=== PATIENT | female | born 1955 | race Caucasian/White ===

== ENCOUNTER → 2017-02-23 | Outpatient (CLI) | payer MEDICARE ==
[2015-12-23 11:00] VITALS: BP 93/55
[~2017-02-23] MED LIST: ASPI-630 PO; CHLO1CAP PO; DULO60CA44 PO; LISI1TAB3 PO; METH20TA PO; PANT40TA5 PO; QUET200T PO
--- NOTE | 2017-02-23 11:13 | CARD ---
APPROVED REPORT EXAM: Two-dimensional and M-mode echocardiogram with Doppler and color Doppler. Other Information Quality : GoodHR: 70bpm INDICATION Pericardial Effusion 2D DIMENSIONS Left Atrium(2D)3.4 (1.6-4.0cm)IVSd1.1 (0.7-1.1cm) Aortic Root(2D)2.2 (2.0-3.7cm)LVDd4.8 (3.9-5.9cm) LVOT Diameter1.9 (1.8-2.4cm)PWd1.3 (0.7-1.1cm) LVDs3.2 (2.5-4.0cm)FS (%) 33.7 % SV67.3 mlLVEF(%)62.4 (>50%) Aortic Valve AoV Peak Dipesh.225.9cm/sAoV VTI52.3cm AO Peak GR.20.4mmHgLVOT Peak Dipesh.118.3cm/s AO Mean GR.11mmHgAVA (VMAX)1.09cm2 AI P 1/2 Opbg993bf Mitral Valve MV E Daoatnqq055.3cm/sMV E Peak Gr.84mmHg MV DECEL [id number] A Rnuqcjvh008.6cm/s MV EAJ70btT/A Ratio1.1 MVA (PHT)2.67cm2 TDI E/Lateral E'13.5E/Medial E'15.1 Pulmonary Valve PV Peak Auhsrblc188.6cm/sPV Peak Grad.5mmHg Tricuspid Valve TR P. Vytjajqj319ad/sRAP VSJQCKCD2wuXo TR Peak Gr.22jlTvDOPE97wpQg Pulmonary Vein S1 Vgvwsafx07.5cm/sD2 Xngxqsgu19.2cm/s LEFT VENTRICLE The left ventricle is normal size. There is mild hypertrophy of the posterior wall. The left ventricu lar systolic function is normal and the ejection fraction is within normal range. EF 55% There is nor mal LV segmental wall motion. Transmitral Doppler flow pattern is Grade I-abnormal relaxation pattern . RIGHT VENTRICLE The right ventricle is normal size. The right ventricular systolic function is normal. ATRIA The left atrium size is normal. The right atrium size is normal. The interatrial septum is intact wit h no evidence for an atrial septal defect or patent foramen ovale as noted on 2-D or Doppler imaging. AORTIC VALVE The aortic valve is calcified but opens well. Doppler and Color Flow revealed moderate aortic regurgi tation. Cannot rule out severe aortic insufficiency (less likely) There is no significant aortic valv ular stenosis. MITRAL VALVE The mitral valve is calcified but opens well. There is no evidence of mitral valve prolapse. There is no mitral valve stenosis. Doppler and Color-flow revealed mild mitral regurgitation. TRICUSPID VALVE Not well visualized. Doppler and Color Flow revealed trace tricuspid regurgitation. Unable to estimat e PA pressure. There is no tricuspid valve prolapse or vegetation. There is no tricuspid valve stenos is. PULMONIC VALVE Not visualized well. Doppler and Color Flow revealed no pulmonic valvular regurgitation. There is no pulmonic valvular stenosis. GREAT VESSELS The aortic root is normal in size. The IVC is normal in size and collapses >50% with inspiration. PERICARDIAL EFFUSION There is no pleural effusion. There is a trace to small circumferential pericardial effusion. Pericar dium appears borderline thickened. No clear hemodynamic compromise noted. Critical Notification Critical Value: No <Conclusion> The left ventricular systolic function is normal and the ejection fraction is within normal range. EF 55-60% There is normal LV segmental wall motion. Doppler and Color Flow revealed moderate aortic regurgitation. Cannot rule out severe aortic insuffic iency (less likely) There is a trace to small circumferential pericardial effusion. Pericardium appears borderline thick ened.
== END | disposition home or self-care (01) ==
LOC: ECHO 08:26
PROVIDERS: ATTEND Family Medicine
DX: I08.3 Combined rheumatic disorders of mitral, aortic and tricuspid valves (principal); I31.3 Pericardial effusion (noninflammatory)
CPT/HCPCS: 93306

== ENCOUNTER 2020-08-05 06:02 | Observation (INO) | payer MEDICARE ==
[~2020-08-05] VITALS: Ht 167.6 cm; Wt 96.0 kg
[2020-08-05] VITALS (12 sets, daily range): BP systolic 84–148; BP diastolic 36–80
[~2020-08-05 06:02] MED LIST changes: +ACET500T68 PO; +ACYC-12 PO; +ALPR1TAB6 PO; +AMLO-186 PO; +ATOR20TA58 PO; +BUPR300T3 PO; +CELE200C PO; -DULO60CA44 PO; +DULO60CA45 PO; +GABA600T7 PO; +HYDROmorphone 2 MG/ML VIAL IVP PRN; +IV RINGERS,LACTATED 1000ML 1,000 ML IV SCH; +LAMO50TA3 PO; +LISI1TAB23 PO; -LISI1TAB3 PO; +MORPHINE SULFATE 2 MG/ML VIAL. IVP PRN; -PANT40TA5 PO; +PANT40TA77 PO; +PROCHLORPERAZINE 10 MG/2 ML VIAL. IVP PRN; +fentaNYL PF VIAL 100 MCG/2 ML VIAL IVP PRN
[2020-08-05] MEDS ORDERED: DEXAMETHASONE SOD PHOS 4 MG/ML VIAL ONE (06:37)
[2020-08-05] MEDS ORDERED: ONDANSETRON PF 4 MG/2 ML VIAL. ONE (06:37)
[2020-08-05] MEDS ORDERED: PROPOFOL 10 MG/ML (20ML) VIAL. IV ONE ×2 (06:37→08:30)
[2020-08-05] MEDS ORDERED: LIDOCAINE 2% PF 5 ML VIAL. ONE (06:37)
[2020-08-05] MEDS ORDERED: ROCURONIUM 50 MG/5 ML VIAL. ONE (06:38)
[2020-08-05] MEDS ORDERED: fentaNYL PF VIAL 100 MCG/2 ML VIAL ONE ×2 (06:40→10:03)
[2020-08-05] MEDS ORDERED: BUPIVACAINE-EPI 0.25% 30 ML VIAL KIT. ONE (06:57)
[2020-08-05] MEDS ORDERED: SEVOFLURANE 61 TO 120 MINUTES. IH ONE (07:37)
[2020-08-05] MEDS ORDERED: PHENYLEPHRINE in 0.9% NACL PF 1 MG/10 ML SYRINGE. IV ONE ×2 (07:41→09:18)
[2020-08-05] MEDS ORDERED: ePHEDrine PF IN SALINE 50 MG/10 ML SYRINGE. IV ONE (09:20)
[2020-08-05] MEDS ORDERED: HYDROcodone/APAP 5/325MG 1 TAB TABLET PO PRN (09:45)
[2020-08-05] MEDS ORDERED: ONDANSETRON PF 4 MG/2 ML VIAL. IVP PRN (09:45)
[2020-08-05] MEDS ORDERED: NALOXONE 0.4 MG/ML VIAL. IV PRN (09:45)
[2020-08-05] MEDS ORDERED: 0.9 % SODIUM CHLORIDE 10 ML DISP.SYRIN. IV PRN (09:45)
[2020-08-05] MEDS ORDERED: HYDROmorphone 2 MG/ML VIAL IV PRN (09:45)
--- NOTE | 2020-08-05 09:45 | PDOC4 ---
Operative Note Operative Note Operative Note: Preoperative Diagnosis: Ventral hernia Postoperative Diagnosis: Ventral hernia Procedure: Ventral hernia repair with mesh Surgeon: [employer] Chief: Courtney RICHARDSON Anesthesia: General EBL: 30 mL Specimen: None Drains: None Complications: None Indication: The patient is a 65-year-old female who was referred due to a left lower quadrant ventral hernia. She was offered surgical repair. The risks of surgery were discussed which include bleeding, infection, recurrence, pain, anesthetic risk, wound healing problems, potential need for additional surgery procedure. She understands and would like to proceed. Description: The patient was taken to the operating room and placed supine in the operating table. General anesthesia was performed. The abdomen is prepped with ChloraPrep and draped with sterile towels sheets and a Steri-Drape. An incision was made in the left lower quadrant with a scalpel. Cautery dissection was carried down to the fascia. The edges of the fascial defect were readily identified and clarified. A retromuscular plane was then developed circumferentially around the fascial defect. This was done with a combination of blunt and cautery dissection. A circular Ventrio ST mesh was then placed into this retromuscular plane. The mesh provided very good coverage with o verlap in all directions. The mesh was sutured into position around its periphery with 0 Prolene placed in a horizontal mattress fashion. The fascial edges were approximated over the mesh with 0 Prolene. The deep subcutaneous tissue was approximated with 0 Vicryl. The superficial subcutaneous tissue was closed with 3-0 Vicryl. The skin was approximated with 4-0 Monocryl. Sterile dressing was then applied. The patient tolerated the procedure well and was sent to the covering room in stable condition. At the end the case all counts were correct. KATIUSKA ALLRED MD August 05, 2020 09:45
[2020-08-05] MEDS: fentaNYL PF VIAL 100 MCG/2 ML VIAL IVP PRN ×2 (10:07→10:23)
[2020-08-05] MEDS: hydroCHLOROthiazide 12.5 MG CAPSULE PO SCH (10:30)
[2020-08-05] MEDS: LISINOPRIL 10 MG TABLET PO SCH (10:30)
[2020-08-05] MEDS: lamoTRIgine 25 MG TABLET. PO SCH (10:30)
[2020-08-05] MEDS: IV NORMAL SALINE 1000ML BAG 1,000 ML IV SCH (10:51)
[2020-08-05] MEDS: IV 1/2 NORMAL SALINE 1,000 ML IV SCH ×2 (11:24→22:15)
[2020-08-05] MEDS: HYDROcodone/APAP 5/325MG 1 TAB TABLET PO PRN ×3 (11:25→21:54)
[2020-08-05] MEDS ORDERED: ACYCLOVIR 200 MG CAPSULE. PO PRN (14:00)
[2020-08-05] MEDS: GABAPENTIN 300 MG CAPSULE. PO SCH ×2 (14:17→19:52)
[2020-08-05] MEDS: ALPRAZolam 1 MG TABLET PO PRN ×2 (14:22→23:00)
--- NOTE | 2020-08-05 20:26 | NUR ---
patient refused wellbutrin dose tonight, she ststed she took dose today at home.
[2020-08-05] MEDS ORDERED: buPROPion XL 150 MG TAB.ER.24H. PO SCH (21:00)
[2020-08-05] MEDS ORDERED: ATORVASTATIN CALCIUM 20 MG TABLET PO SCH (21:00)
[2020-08-06] MEDS: HYDROcodone/APAP 5/325MG 1 TAB TABLET PO PRN ×2 (01:55→06:50)
[2020-08-06] MEDS: ALPRAZolam 1 MG TABLET PO PRN (06:50)
[2020-08-06 07:00] VITALS: BP 88/46
[2020-08-06] MEDS: lamoTRIgine 25 MG TABLET. PO SCH (08:00)
[2020-08-06] MEDS: GABAPENTIN 300 MG CAPSULE. PO SCH (08:00)
[2020-08-06] MEDS: hydroCHLOROthiazide 12.5 MG CAPSULE PO SCH (08:00)
[2020-08-06] MEDS: IV NORMAL SALINE 1000ML BAG 1,000 ML IV SCH (08:00)
[2020-08-06] MEDS: LISINOPRIL 10 MG TABLET PO SCH (08:01)
[2020-08-06] MEDS ORDERED: amLODIPine BESYLATE 5 MG TABLET PO SCH (09:00)
[2020-08-06] MEDS ORDERED: ASPIRIN CHEWABLE 81 MG TABLET. PO SCH (09:00)
[2020-08-06] MEDS ORDERED: CELECOXIB 100 MG CAPSULE. PO SCH (09:00)
--- NOTE | 2020-08-06 09:08 | PDOC ---
PROGRESS NOTES Date of Service DATE: 08/06/20 TIME: 09:06 Subjective Subjective doing ok, minimal mobility, not walking much Objective Objective Vital Signs Date Time Temp Pulse Resp B/P (MAP) Pulse Ox O2 Delivery O2 Flow Rate FiO2 08/06/20 08:01 72 128/41 08/06/20 08:00 Room Air 6.0 08/06/20 07:00 97.8 18 97 97.8 Intake and Output 08/06/20 07:00 Intake Total 3330 ml Output Total 530 ml Balance 2800 ml Intake Oral 180 ml IV Total 3150 ml Output Urine Total 500 ml Estimated Blood Loss 30 ml # Voids 4 Physical Exam Abdomen: Soft (tender at incision) Assessment Assessment POD 1 VHR Plan Plan of Care Not able to discharge today, mobility minimal; ask PT to see, need to ambulate and possible DC tomorrow Comment Review of Relevant I have reviewed the following items leandro (where applicable) has been applied. Medications Current Medications Fentanyl Citrate (Fentanyl 2ml Vial) 25 mcg PRN Q5MIN PRN IVP MILD PAIN 1-3; Start 08/05/20 at 06:00; Stop 08/06/20 at 05:59; Status DC Fentanyl Citrate (Fentanyl 2ml Vial) 50 mcg PRN Q5MIN PRN IVP MODERATE PAIN 4-6 Last administered on 08/05/20at 10:23; Start 08/05/20 at 06:00; Stop 08/06/20 at 05:59; Status DC Morphine Sulfate (Morphine Sulfate) 1 mg PRN Q10MIN PRN IVP SEVERE PAIN 7-10; Start 08/05/20 at 06:00; Stop 08/06/20 at 05:59; Status DC Ringer's Solution 1,000 ml @ 30 mls/hr Q24H IV Last administered on 08/05/20at 06:46; Start 08/05/20 at 06:00; Stop 08/05/20 at 17:59; Status DC Hydromorphone HCl (Dilaudid) 0.5 mg PRN Q10MIN PRN IVP SEVERE PAIN 7-10, 2nd CHOICE; Start 08/05/20 at 06:00; Stop 08/06/20 at 05:59; Status DC Prochlorperazine Edisylate (Compazine) 5 mg PACU PRN PRN IVP NAUSEA, MRX1; Start 08/05/20 at 06:00; Stop 08/06/20 at 05:59; Status DC Levofloxacin/ Dextrose 150 ml @ 100 mls/hr 1X PREOP PRN IV PRIOR TO PROCEDURE Last administered on 08/05/20at 07:30; Start 08/05/20 at 06:00; Stop 08/05/20 at 18:00; Status DC Propofol (Diprivan) 200 mg STK-MED ONCE IV ; Start 08/05/20 at 06:37; Stop 08/05/20 at 06:37; Status DC Lidocaine HCl (Lidocaine Pf 2% Vial) 5 ml STK-MED ONCE .ROUTE ; Start 08/05/20 at 06:37; Stop 08/05/20 at 06:38; Status DC Dexamethasone Sodium Phosphate (Decadron) 4 mg STK-MED ONCE .ROUTE ; Start 08/05/20 at 06:37; Stop 08/05/20 at 06:38; Status DC Ondansetron HCl (Zofran) 4 mg STK-MED ONCE .ROUTE ; Start 08/05/20 at 06:37; Stop 08/05/20 at 06:38; Status DC Rocuronium [place] (Zemuron) 50 mg STK-MED ONCE .ROUTE ; Start 08/05/20 at 06:38; Stop 08/05/20 at 06:38; Status DC Fentanyl Citrate (Fentanyl 2ml Vial) 100 mcg STK-MED ONCE .ROUTE ; Start 08/05/20 at 06:40; Stop 08/05/20 at 06:41; Status DC Bupivacaine HCl/ Epinephrine Bitart (Sensorcain-Epi 0.25% Kit) 30 ml STK-MED ONCE .ROUTE Last administered on 08/05/20at 07:56; Start 08/05/20 at 06:57; Stop 08/05/20 at 06:57; Status DC Sevoflurane (Ultane) 60 ml STK-MED ONCE IH ; Start 08/05/20 at 07:37; Stop 08/05/20 at 07:37; Status DC Phenylephrine HCl (PHENYLEPHRINE in 0.9% NACL PF) 1 mg STK-MED ONCE IV ; Start 08/05/20 at 07:41; Stop 08/05/20 at 07:41; Status DC Propofol (Diprivan) 200 mg STK-MED ONCE IV ; Start 08/05/20 at 08:30; Stop 08/05/20 at 08:30; Status DC Phenylephrine HCl (PHENYLEPHRINE in 0.9% NACL PF) 1 mg STK-MED ONCE IV ; Start 08/05/20 at 09:18; Stop 08/05/20 at 09:18; Status DC Ephedrine Sulfate (ePHEDrine PF IN SALINE SYRINGE) 50 mg STK-MED ONCE IV ; Start 08/05/20 at 09:20; Stop 08/05/20 at 09:20; Status DC Sodium Chloride (Normal Saline Flush) 3 ml QSHIFT PRN IV AFTER MEDS AND BLOOD DRAWS; Start 08/05/20 at 09:45 Sodium Chloride 1,000 ml @ 80 mls/hr [id number] IV Last administered on 08/05/20at 11:24; Start 08/05/20 at 09:45; Stop 08/05/20 at 22:24; Status DC Acetaminophen/ Hydrocodone Bitart (Lortab 5/325) 1 tab PRN Q4HRS PRN PO MILD PAIN 1-3; Start 08/05/20 at 09:45 Acetaminophen/ Hydrocodone Bitart (Lortab 5/325) 2 tab PRN Q4HRS PRN PO MODERATE PAIN, SEVERE PAIN Last administered on 08/06/20at 06:50; Start 08/05/20 at 09:45 Naloxone HCl (Narcan) 0.4 mg PRN Q2MIN PRN IV SEE INSTRUCTIONS; Start 08/05/20 at 09:45 Sodium Chloride 1,000 ml @ 25 mls/hr Q24H IV Last administered on 08/06/20at 08:00; Start 08/05/20 at 09:45 Hydromorphone HCl (Dilaudid) 0.2 mg PRN Q1HR PRN IV PAIN Last administered on 08/06/20at 01:51; Start 08/05/20 at 09:45 Ondansetron HCl (Zofran) 4 mg PRN Q6HRS PRN IVP NAUESA, 1ST CHOICE; Start 08/05/20 at 09:45 Alprazolam (Xanax) 1 mg TID PRN PO ANXIETY / AGITATION Last administered on 08/06/20at 06:50; Start 08/05/20 at 09:45 Amlodipine Besylate (Norvasc) 5 mg DAILY PO Last administered on 08/06/20at 08:01; Start 08/06/20 at 09:00 Aspirin (Aspirin Chewable) 81 mg DAILY PO Last administered on 08/06/20at 08:00; Start 08/06/20 at 09:00 Atorvastatin Calcium (Lipitor) 20 mg HS PO Last administered on 08/05/20at 19:50; Start 08/05/20 at 21:00 Acyclovir (Zovirax) 400 mg PRN QID PRN PO FOR VIRAL FLARE; Start 08/05/20 at 14:00 Bupropion HCl (Wellbutrin Xl) 300 mg QHS PO ; Start 08/05/20 at 21:00 Celecoxib (CeleBREX) 200 mg DAILY PO Last administered on 08/06/20at 08:00; Start 08/06/20 at 09:00 Gabapentin (Neurontin) 300 mg TID PO Last administered on 08/06/20at 08:00; Start 08/05/20 at 14:00 Lamotrigine (LaMICtal) 50 mg DAILY PO Last administered on 08/06/20at 08:00; Start 08/05/20 at 10:30 Lisinopril (Prinivil) 10 mg DAILY PO Last administered on 08/06/20at 08:01; Start 08/05/20 at 10:30 Fentanyl Citrate (Fentanyl 2ml Vial) 100 mcg STK-MED ONCE .ROUTE ; Start 08/05/20 at 10:03; Stop 08/05/20 at 10:03; Status DC Hydrochlorothiazide (Microzide) 12.5 mg DAILY PO Last administered on 08/06/20at 08:00; Start 08/05/20 at 10:30 Active Scripts Active Reported Acetaminophen 500 Mg Tablet 500 Mg PO PRN DAILY PRN Amlodipine Besylate 5 Mg Tablet 5 Mg PO DAILY Celebrex (Celecoxib) 200 Mg Capsule 200 Mg PO DAILY 30 Days Acyclovir 400 Mg Tablet 400 Mg PO PRN QID PRN Atorvastatin Calcium 20 Mg Tablet 20 Mg PO HS Wellbutrin Xl (Bupropion Hcl) 300 Mg Tab.er.24h 300 Mg PO HS Lamotrigine 50 Mg Tab.er.24 50 Mg PO DAILY Gabapentin 600 Mg Tablet 300 Mg PO TID Alprazolam 1 Mg Tablet 1 Mg PO TID PRN Aspirin 81 Mg Tab.chew 81 Mg PO Lisinopril-Hctz 10-12.5 Mg Tab (Lisinopril/Hydrochlorothiazide) 1 Each Tablet 1 Tab PO DAILY Vitals/I & O Vital Sign - Last 24 Hours 08/05/20 08/05/20 08/05/20 08/05/20 09:42 09:42 09:55 10:07 Temp 97.7 97.7 Pulse 78 82 Resp 18 16 16 B/P (MAP) 102/56 91/44 Pulse Ox 96 99 99 O2 Delivery Mask Simple Mask Simple Mask Simple Mask O2 Flow Rate 6 6 6 6.0 08/05/20 08/05/20 08/05/20 08/05/20 10:10 10:23 10:25 10:40 Pulse 81 75 74 Resp 16 16 16 16 B/P (MAP) 88/52 91/49 88/49 Pulse Ox 96 96 96 96 O2 Delivery Room Air Room Air Room Air Room Air 08/05/20 08/05/20 08/05/20 08/05/20 10:52 11:00 11:15 11:25 Temp 98.2 97.4 98.2 97.4 Pulse 68 77 Resp 16 18 B/P (MAP) 91/56 86/36 (53) Pulse Ox 94 92 92 O2 Delivery Room Air Room Air Room Air Room Air 08/05/20 08/05/20 08/05/20 08/05/20 11:30 11:45 12:00 12:15 Pulse 76 72 73 77 Resp 18 18 18 18 B/P (MAP) 93/45 (61) 92/42 (59) 102/46 (64) 94/39 (57) Pulse Ox 96 100 100 99 O2 Delivery Nasal Cannula Nasal Cannula Nasal Cannula Nasal Cannula O2 Flow Rate 2.0 2.0 2.0 2.0 08/05/20 08/05/20 08/05/20 08/05/20 12:22 12:45 13:15 14:15 Pulse 73 76 71 Resp 18 18 18 B/P (MAP) 95/44 (61) 87/48 (61) 99/39 (59) Pulse Ox 98 99 98 99 O2 Delivery Nasal Cannula Nasal Cannula Nasal Cannula Nasal Cannula O2 Flow Rate 2.0 2.0 2.0 2.0 08/05/20 08/05/20 08/05/20 08/05/20 15:15 16:07 17:20 19:00 Temp 98.5 98.5 Pulse 82 75 Resp 18 18 B/P (MAP) 84/41 (55) 96/43 (60) Pulse Ox 99 99 O2 Delivery Nasal Cannula Nasal Cannula Nasal Cannula Room Air O2 Flow Rate 2.0 2.0 2.0 08/05/20 08/05/20 08/05/20 08/05/20 20:00 21:54 22:24 23:00 Temp 98.0 98.0 Pulse 72 Resp 20 20 18 B/P (MAP) 128/41 (70) Pulse Ox 99 99 100 O2 Delivery Room Air Room Air Room Air Room Air O2 Flow Rate 2.0 08/06/20 08/06/20 08/06/20 08/06/20 01:51 01:55 03:00 06:50 Resp 20 18 20 20 Pulse Ox 100 100 100 O2 Delivery Room Air Room Air Room Air 08/06/20 08/06/20 08/06/20 08/06/20 07:00 08:00 08:01 08:01 Temp 97.8 97.8 Pulse 78 72 72 Resp 18 B/P (MAP) 88/46 (60) 128/41 128/41 Pulse Ox 97 O2 Delivery Room Air Room Air O2 Flow Rate 6.0 Intake and Output 08/05/20 08/05/20 08/06/20 15:00 23:00 07:00 Intake Total 2150 ml 1180 ml Output Total 530 ml Balance 1620 ml 1180 ml Justifications for Admission Other Justification KATIUSKA ALLRED MD August 06, 2020 09:08
--- NOTE | 2020-08-06 09:45 | NUR ---
SW following. Discussed with RN, pt from home with , room air, full liquid diet. PT ordered. Per RN, pt up ad yara. Pt had surgery 08/05/20. RN advised no SW needs at this time, anticipates discharge home today. SW will continue to follow.
[2020-08-06 11:00] VITALS: BP 105/41
== END 2020-08-06 11:55 | disposition home or self-care (01) ==
LOC: SURG 06:02 → 4 NORTH 09:32
PROVIDERS: ADMIT Surgery; ATTEND Surgery
DX: K43.9 Ventral hernia without obstruction or gangrene (principal); K43.6 Other and unspecified ventral hernia with obstruction, without gangrene; Z79.82 Long term (current) use of aspirin
CPT/HCPCS: 49561; 49568; 96361; 96374; A4213; A4314; A4364; A4930; A6402; C1781; G0378; G0379; J1100; J1170; J1956; J2370; J2704; J3010; J3490; J7030; A4452; J2405